=== PATIENT | female | born 1950 | race Caucasian/White ===

== ENCOUNTER 2019-07-16 16:36 | Emergency (ER) | payer MEDICARE ==
[~2019-07-16] VITALS: Ht 167.6 cm; Wt 63.6 kg
[2019-07-16 16:47] VITALS: Ht 167.6 cm; Wt 63.6 kg
[2019-07-16] MEDS ORDERED: ZESTRIL40 MG PO (16:50)
[2019-07-16 17:25] LABS: BASOPHILS 0.1 % (0-2); EOSINOPHILS 0.1 % (0-7); HEMATOCRIT 46.4 % (36.0-48.0); HEMOGLOBIN 15.9 g/dL (12-16); IMMATURE GRANULOCYTES 0.3 % (0-5); LYMPHOCYTES 10.5 % (15-50); MCH 32.8 pg (26.0-34.0); MCHC 34.3 g/dL (31.0-37.0); MCV 95.7 fL (80.0-100.0); MEAN PLATELET VOLUME 10.1 fL (7.4-10.4); MONOCYTES 6.4 % (2-11); NEUTROPHILS 82.6 % (40-80); PLATELET COUNT 353 10x3/uL (130-400); RBC 4.85 10x6/uL (4.00-5.40); RDW 13.7 % (11.5-14.5); WBC 15.7 10x3/uL (4.8-10.8)
[2019-07-16 17:50] LABS: INR 0.94 (0.85-1.17); PROTIME 12.5 SECONDS (11.6-15.0)
[2019-07-16 17:52] LABS: CALC OSMOLALITY 282 mosm/kg (275-300); CALCIUM 9.2 mg/dL (8.5-10.1); CARBON DIOXIDE 25.2 mmol/L (21.0-32.0); CHLORIDE - SERUM 104 mmol/L (98-107); CREATININE - SERUM 0.7 mg/dL (0.6-1.3); GLUCOSE 134 mg/dL (74-106); POTASSIUM - SERUM 4.1 mmol/L (3.5-5.1); SODIUM 141 mmol/L (136-145); UREA NITROGEN 13 mg/dL (7-18); eGFR NON AFRICAN AMERICAN 88 mL/min (90-120)
[2019-07-16 18:14] LABS: ALKALINE PHOSPHATASE 70 U/L (46-116); ALT (SGPT) 31 U/L (10-68); BILIRUBIN - TOTAL 0.42 mg/dL (0.2-1.3); CKMB 18.6 U/L (0.0-3.6); CREATINE KINASE 232 UL (21-215); PROTEIN - SERUM 7.5 g/dL (6.4-8.2)
[2019-07-16 18:18] LABS: TROPONIN-I 2.477 ng/mL (0.000-0.060)
[2019-07-16 18:25] VITALS: BP 122/68
== END 2019-07-16 18:29 | disposition home or self-care (01) ==
LOC: D.ER 16:36
PROVIDERS: Family Medicine
DX: R41.82 Altered mental status, unspecified (principal); I48.20 Chronic atrial fibrillation, unspecified; I10 Essential (primary) hypertension; Z72.0 Tobacco use; R11.10 Vomiting, unspecified